=== PATIENT | male | born 1985 | race Caucasian/White ===

== ENCOUNTER 2016-12-26 00:25 | Emergency (ER) | payer OTHER ==
[~2016-12-26] VITALS: Ht 195.6 cm; Wt 107.4 kg
[2016-12-26 00:28] VITALS: BP 133/90
[2016-12-26] MEDS ORDERED: DEXT10TA7 PO (00:32)
[2016-12-26] MEDS ORDERED: PROAIR (00:32)
[2016-12-26] MEDS ORDERED: QVAR (00:32)
[2016-12-26] MEDS ORDERED: LIDOCAINE 2%, 20ML SQ ONE (01:00)
[2016-12-26] MEDS ORDERED: LIDOCAINE 1%, 20ML ONE (01:15)
[2016-12-26] MEDS ORDERED: DIPH,PERTUSS(ACELL),TET VAC/PF 0.5 ML IM-VACC ONE ×2 (02:00→02:13)
== END 2016-12-26 03:13 | disposition home or self-care (01) ==
LOC: ED 03:00
DX: S71.112A Laceration without foreign body, left thigh, initial encounter (principal); W45.8XXA Other foreign body or object entering through skin, initial encounter; Y93.39 Activity, other involving climbing, rappelling and jumping off; Y92.89 Other specified places as the place of occurrence of the external cause; Y99.9 Unspecified external cause status
CPT/HCPCS: 12002; 90471; 90715

== ENCOUNTER → 2017-08-19 | Outpatient (CLI) | payer OTHER ==
[~2017-08-19] MED LIST: ALBU8.5H8 INH; AMPH15TA PO; BECL10.62 INH; DEXT10TA7 PO; IBUP-1223 PO; META-23 PO; PROAIR; QVAR; VALA500T PO
== END ==
LOC: STAR 08:36
PROVIDERS: ATTEND Orthopaedic Surgery
DX: Z02.9 Encounter for administrative examinations, unspecified (principal)

== ENCOUNTER 2017-08-23 05:13 | Day surgery (SDC) | payer OTHER ==
[2017-08-19 09:03] VITALS: BP 131/82
[~2017-08-23] VITALS: Ht 195.6 cm; Wt 112.9 kg
[2017-08-23] MEDS ORDERED: LACTATED RINGERS 1,000 ML IV SCH (06:09)
[2017-08-23 06:14] VITALS: BP 131/82
[2017-08-23] MEDS ORDERED: CLINDAMYCIN 150 MG/ML, 6ML ONE (06:22)
[2017-08-23] MEDS ORDERED: LIDOCAINE/PF 0.5% ,50ML ONE (06:30)
[2017-08-23] MEDS ORDERED: LIDOCAINE-MPF 1%, 2ML INFIL ONE (06:30)
[2017-08-23] MEDS ORDERED: EPINEPHRINE 1 MG/ML, 1ML ONE (06:30)
[2017-08-23] MEDS ORDERED: ROPIvacaine/PF 0.5%, 30 ML ONE ×3 (06:30→06:34)
[2017-08-23] MEDS ORDERED: SCOPOLAMINE PATCH, 1.5MG PATCH.TD72 TD ONE ×2 (06:33→07:00)
[2017-08-23] MEDS ORDERED: GABAPENTIN 300 MG CAPSULE ONE (06:33)
[2017-08-23] MEDS ORDERED: LIDOCAINE 1%, 50ML ONE (06:33)
[2017-08-23] MEDS ORDERED: FENTANYL PF 100 MCG/2ML ONE ×3 (06:34→08:23)
[2017-08-23] MEDS ORDERED: MIDAZOLAM 1 MG/ML, 2ML ONE (06:34)
[2017-08-23] MEDS ORDERED: DEXAMETHASONE 4 MG/ML, 1ML ONE (06:39)
[2017-08-23] MEDS ORDERED: ONDANSETRON 2MG/ML, 2ML ONE (06:39)
[2017-08-23] MEDS ORDERED: CEFAZOLIN 1,000 MG ONE (06:39)
[2017-08-23] MEDS ORDERED: PROPOFOL 10 MG/ML, 20ML ONE (06:39)
[2017-08-23] MEDS ORDERED: BUPIVACAINE/PF 0.5% ONE (06:40)
[2017-08-23] MEDS ORDERED: ACETAMINOPHEN 500 MG TABLET PO ONE (07:00)
[2017-08-23] MEDS ORDERED: GABAPENTIN 300 MG CAPSULE PO ONE (07:00)
[2017-08-23] MEDS ORDERED: MEPERIDINE/PF 50 MG/ML ONE (07:21)
[2017-08-23] MEDS ORDERED: morphine SULFATE 10 MG/ML, 1ML IV PRN (07:30)
[2017-08-23] MEDS ORDERED: ONDANSETRON 2MG/ML, 2ML IVPush PRN (07:30)
[2017-08-23] MEDS ORDERED: MIDAZOLAM 1 MG/ML, 2ML IV PRN (07:30)
[2017-08-23] MEDS ORDERED: ALBUTEROL SULFATE 2.5 MG/3 ML NPPB PRN (07:30)
[2017-08-23] MEDS ORDERED: hydrALAzine 20 MG/ML, 1ML IV PRN (07:30)
[2017-08-23] MEDS ORDERED: LABETALOL 5MG/ML, 20ML IV PRN (07:30)
[2017-08-23] MEDS ORDERED: PROMETHAZINE 12.5 MG SUPP PR PRN (07:30)
[2017-08-23] MEDS ORDERED: DIAZEPAM 5 MG/ML, 2ML IVPush PRN (07:30)
[2017-08-23] MEDS ORDERED: LORazepam 2 MG/ML, 1ML IVPush PRN (07:30)
[2017-08-23] MEDS ORDERED: PROMETHAZINE 25 MG/ML, 1ML IV PRN (07:30)
[2017-08-23] MEDS ORDERED: OXYcodone 5 MG/5 ML ORAL.SOL UDC PO PRN (07:30)
[2017-08-23] MEDS ORDERED: MEPERIDINE/PF 25MG/0.5ML IVPush PRN (07:30)
[2017-08-23] MEDS ORDERED: ALBUTEROL/IPRATROPIUM 2.5MG/0.5MG, 3 ML NPPB PRN (07:30)
[2017-08-23] MEDS ORDERED: METOCLOPRAMIDE 5 MG/ML, 2ML IV PRN (07:30)
[2017-08-23] MEDS ORDERED: KETOROLAC 30 MG/1 ML ONE (08:05)
[2017-08-23] MEDS ORDERED: OXYcodone 5 MG/5 ML ORAL.SOL UDC ONE (08:06)
[2017-08-23] MEDS: FENTANYL PF 100 MCG/2ML IV PRN ×2 (08:08→08:15)
[2017-08-23] MEDS ORDERED: KETOROLAC 30 MG/1 ML IVPush PRN (08:30)
== END 2017-08-23 10:45 ==
LOC: OUT 05:13
PROVIDERS: ATTEND Orthopaedic Surgery
DX: S83.242A Other tear of medial meniscus, current injury, left knee, initial encounter (principal); M65.862 Other synovitis and tenosynovitis, left lower leg; J45.909 Unspecified asthma, uncomplicated; X58.XXXA Exposure to other specified factors, initial encounter; Y93.89 Activity, other specified; Y92.89 Other specified places as the place of occurrence of the external cause; Y99.8 Other external cause status; Z88.1 Allergy status to other antibiotic agents; Z88.0 Allergy status to penicillin; Z88.8 Allergy status to other drugs, medicaments and biological substances
CPT/HCPCS: 29881; J0171; J1100; J1885; J2175; J2250; J2405; J2704; J2795; J3010; J3490; J7120; J0690; J2001